=== PATIENT | male | born 1960 | race Caucasian/White ===

== ENCOUNTER → 2016-12-31 | Outpatient (CLI) | payer OTHER ==
--- NOTE | 2016-12-31 15:58 | MRI ---
MRI left knee without contrast Indication: Twisting injury of the left knee Comparison: None Technique: Multiplanar multisequence MR images of the left knee were obtained without contrast. Findings: There is marked abnormal increased signal and irregularity of the distal quadriceps tendon , with significant fiber disruption although some of the deep tendon fibers appear to remain intact. There is also irregularity and edema of the distal VMO fibers, suggesting partial tear. The medial and lateral patellofemoral retinacula are grossly intact. No acute fracture subluxation is identified. There is mild chondrosis of the medial femorotibial com partment, although no full-thickness chondral defect is identified. There is a small amount of fluid within the joint space, without lipohemarthrosis. There is mucoid degeneration of the otherwise int act ACL. An ovoid 4 mm fluid intensity focus within the ACL mid-substance is suggestive for a gangli on. The PCL, MCL, major lateral stabilizers, and quadriceps tendon are grossly intact. There is some edema adjacent to the MCL, which is likely reactive, but low-grade MCL sprain cannot be excluded. N o meniscal tear identified. Impression: 1. Intermediate to high-grade tear of the distal quadriceps tendon. Partial VMO tear. 2. Low grade MCL sprain cannot be excluded. 3. Mild medial compartment chondrosis, mucoid ACL. Reported By:
== END | disposition home or self-care (01) ==
LOC: RAD 14:32
PROVIDERS: ATTEND Anesthesiology
DX: M25.362 Other instability, left knee (principal); M23.8X2 Other internal derangements of left knee; S76.112A Strain of left quadriceps muscle, fascia and tendon, initial encounter; X58.XXXA Exposure to other specified factors, initial encounter
CPT/HCPCS: 73721

== ENCOUNTER 2020-07-14 13:10 | Inpatient (IN) ==
[2020-07-14 13:26] VITALS: BMI 26.4
--- NOTE | 2020-07-14 14:33 | DR.SOBA ---
HPI - Time Seen Time seen: 14:28 - Primary Care Physician Primary Care Physician: MIGEL RUTHERFORD - Complaints Chief Complaint Doctors Comments: Patient states he tested positive for COVID four days ago with cough, SOB, night sweats getting progressively worst with severe coughing worst at night. States he has gone to the emergency room two times in [place] and went last night with BP 96/60 and they sent him back home. States he has not eaten in three days due to the coughing. He is not sure about his taste or smell. He denies tobacco use but drinks beer at times. He denies drug usage. States he is coming from [place] on his way to [place] and has not made it there yet. States his oxygen has been running 92 to 95 at home and he has no oxygen. States he just want to be admitted and sent to a room. He denies diarrhea, hematuria or dysuria. Chief Complaint:: SOB, COUCHING, AND SWEATING. (COVID POSITIVE) - COVID-19 Coronavirus risk:travel/contact w/high risk person: No Has patient experienced Coronavirus symptoms: Yes Coronavirus symptoms experienced: Fever, Coughing, Shortness of Breath - Reviewed Nurses Notes Reviewed: Yes - Source History Provided: Patient - Mode of Arrival Mode of Arrival: Ambulatory - Timing Onset of Chief Complaint: 07/10/20 - Duration Duration: Days (5) - Context Onset:: At Rest PE Risk Factors:: None History of:: None Currently on:: Neither Prehospital Care:: None - Modifying Factors Worsens:: Exertion Improves:: Nothing - Associated Signs and Symptoms Associated Signs and Symptoms: Fever, Cough, Chest Pain (when cough) - If Cough Cough: Nonproductive PMH - PMH Past Medical History: No Past Surgical History: Yes Surgical History: Tonsillectomy, Other Past Surgical History Comment: HERNIA - Family History History of Family Medical Conditions: No - Social History Does patient currently use any type of tobacco product: No Does any household member use tobacco: No Alcohol Use: Occasionally Do you use any recreational Drugs:: No Lives With: Significant Other Lives Where: Home - Travel Risk Coronavirus risk:travel/contact w/high risk person: No Has patient experienced Coronavirus symptoms: Yes Coronavirus symptoms experienced: Fever, Coughing, Shortness of Breath - infectious screening In the last 2 months have you had wt loss of >10#?: NO Have you had fever, night sweats or hemotysis?: Yes Have you traveled outside the country in the last 6 months?: No Isolation: Droplet PE - General Limitations: No Limitations General Appearance: Alert, In Distress (moderate) - Head Head Exam: Normal Inspection, Atraumatic, Normocephalic - Eyes Eye exam: Normal Appearance, PERRL, EOMI. negative: Scleral Icterus, Conjunctival Injection, Nystagmus, Miosis, Mydrasis, Periorbital Swelling, Periorbital Tenderness, Other - ENT ENT Exam: Normal Exam, Normal Oropharynx, Normal External Ear Exam, Mucous Membranes Moist, TM's Normal Bilaterally - Neck Neck Exam: Normal Inspection, Full ROM, Trachea Midline. negative: Tenderness, Meningismus, Lymphadenopathy, Thyromegaly, Other - Chest Chest Inspection: Normal Inspection, Symmetric Chest Wall Rise. negative: Ten derness, Rash, Abscess, Other - Respiratory Respiratory Exam: Normal Lung Sounds Bilat Respiratory Exam: Bilateral Wheezing, Bilateral Decreased Breath Sounds, Right Rales, Lower Rales - Cardiovascular Cardiovascular Exam: Regular Rate, Normal Rhythm, Normal Heart Sounds - Abdominal Exam Abdominal Exam: Normal Inspection, Normal Bowel Sounds, Soft. negative: Distention, Tenderness, Guarding, Rebound, Rigidity, Dimnished Bowel Sounds, Hyperactive Bowel Sounds, Hypoactive Bowel Sounds, Organomegaly, Trauma, Incision, Ascites, Mass, Bruit, Pulsatile Mass, Hernia, Other Abdominal Tenderness: negative: RUQ, RLQ, LUQ, LLQ, Epigastrium, Suprapubic, Diffuse, Mild, Moderate, Severe, Other - Extremities Extremities Exam: Normal Inspection, Full ROM, Normal Capillary Refill. negative: Tenderness, Edema, Joint Swelling, Calf Tenderness, Other - Back Back Exam: Normal Inspection, Full ROM. negative: Tenderness, (R) CVA Tenderness, (L) CVA Tenderness, Muscle Spasm, Paraspinal Tenderness, Vertebral Tenderness, Rashes, (R) Sciatic Notch Tenderness, (L) Sciatic Notch Tendern, (R) Straight Leg Raise, (L) Straight Leg Raise, Other - Neurologic Neurological Exam: Alert, Oriented X3, CN II-XII Intact, Normal Gait, Reflexes Normal - Psychiatric Psychiatric Exam: Normal Affect, Normal Mood. negative: Depressed, Agitated, Anxious, Flat Affect, Manic, Homicidal Ideation, Suicidal Ideation, Other - Skin Skin Exam: Warm, Dry, Intact, Normal Color. negative: Rash, Cyanosis, Diaphoresis, Erythema, Pallor, Mottled, Other - Vital Signs Vitals: Temperature 100.4 F Pulse Rate 80 Respiratory Rate 20 Blood Pressure 112/56 O2 Sat by Pulse Oximetry 98 Course - Reevaluation 1st: Improved - Consultation Called: 17:06 Call Returned: 17:06 (Dr. Miller to admit. Give Solumedrol 80mg q8 and r emdesovir. NO plasma.) - Education/Counseling Education/Counseling: Patient, Family Educated On: Treatment, Diagnosis, Needs for Follow Up ROR - Labs Reviewed Laboratory Results Reviewed?: Yes (All labs and x-ray results reviewed and discussed with patient) Result Diagrams: 07/14/20 14:53 07/14/20 14:53 - XRAY XRAY Interpreted by: Radiologist (CXR: Left greater than right airspace disease. Multifoca atypical pneumonia from COVID-19 infection.) - EKG Rate: 71 Plover: Normal Rhythm: NSR Hypertrophy: LAE ST: Nonsp - Labs Reviewed Laboratory: WBC 5.2 X10^3/uL (3.6-10.0) 07/14/20 14:53 RBC 4.66 X10^6/uL (4.7-6.0) L 07/14/20 14:53 Hgb 15.1 g/dL (13.5-18.0) 07/14/20 14:53 Hct 43.9 % (42.0-54.0) 07/14/20 14:53 MCV 94.2 fL (80.0-100.0) 07/14/20 14:53 MCH 32.4 pg (27.0-34.0) 07/14/20 14:53 MCHC 34.4 g/dL (33.0-35.0) 07/14/20 14:53 RDW 13.3 % (11.6-16.5) 07/14/20 14:53 Plt Count 165 X10^3/uL (150.0-450.0) 07/14/20 14:53 MPV 9.2 fL (7.4-11.0) 07/14/20 14:53 Neut % (Auto) 81.3 % (42.0-75.0) H 07/14/20 14:53 Lymph % (Auto) 11.3 % (21.0-51.0) L 07/14/20 14:53 [place] % (Auto) 7.2 % (0.0-13.0) 07/14/20 14:53 Eos % (Auto) 0.0 % (0.9-2.9) L 07/14/20 14:53 Baso % (Auto) 0.2 % (0.2-1.0) 07/14/20 14:53 Neut # (Auto) 4.2 x10^3/uL (2.2-4.8) 07/14/20 14:53 Lymph # (Auto) 0.6 X10^3/uL (1.3-2.9) L 07/14/20 14:53 [place] # (Auto) 0.4 x10^3/uL (0.3-0.8) 07/14/20 14:53 Eos # (Auto) 0.0 x10^3/uL (0.0-0.2) 07/14/20 14:53 Baso # (Auto) 0.0 X10^3/uL (0.0-0.1) 07/14/20 14:53 Absolute Nucleated RBC 0.1 /100WBC 07/14/20 14:53 PT 13.4 SECONDS (11.8-14.3) 07/14/20 14:53 INR Target Range - 07/14/20 14:53 INR 1.05 (0.8-1.3) 07/14/20 14:53 APTT 28.1 SECONDS (22.9-36.5) 07/14/20 14:53 PTT Comment - 07/14/20 14:53 Sample Site Lr 07/14/20 14:58 ABG pH 7.510 (7.35-7.45) H 07/14/20 14:58 ABG pCO2 31.0 mmHg (35.0-45.0) L 07/14/20 14:58 ABG pO2 63.0 mmHg (80.0-100.0) L 07/14/20 14:58 ABG HCO3 24.7 mmol/L (22-26) 07/14/20 14:58 ABG O2 Saturation 94.0 % (90-100) 07/14/20 14:58 ABG Base Excess 2.2 mmol/L (-2.0-2.0) H 07/14/20 14:58 Deejay Test Pos 07/14/20 14:58 A-a Gradient 48.0 mmHg 07/14/20 14:58 FiO2 21.0 07/14/20 14:58 Blood Gas Comments Pt altagracia well. cdn 07/14/20 14:58 Sodium 136 mmol/L (136-145) 07/14/20 14:53 Corrected Sodium TNP 07/14/20 14:53 Potassium 4.0 mmol/L (3.5-5.1) 07/14/20 14:53 Chloride 100 mmol/L (98-107) 07/14/20 14:53 Carbon Dioxide 26.4 mmol/L (21-32) 07/14/20 14:53 BUN 22 mg/dL (7-18) H 07/14/20 14:53 Creatinine 1.14 mg/dL (0.70-1.30) 07/14/20 14:53 Est GFR (MDRD) Af Amer > 60 (>60) 07/14/20 14:53 Est GFR (MDRD) Non-Af > 60 (>60) 07/14/20 14:53 Glucose 95 mg/dL (65-99) 07/14/20 14:53 Calcium 8.7 mg/dL (8.5-10.1) 07/14/20 14:53 Corrected Calcium 9.7 mg/dL (8.5-10.1) 07/14/20 14:53 Magnesium 1.8 mg/dL (1.7-2.9) 07/14/20 14:53 Ferritin 1402 ng/mL (26-388) H 07/14/20 14:53 Total Bilirubin 0.50 mg/dL (0.2-1.0) 07/14/20 14:53 AST 39 Units/L (15-37) H 07/14/20 14:53 ALT 34 Units/L (12-78) 07/14/20 14:53 Alkaline Phosphatase 48 Units/L (46-116) 07/14/20 14:53 Creatine Kinase 225 Units/L (39-308) 07/14/20 14:53 CK-MB (CK-2) < 1.0 ng/mL (0-4.0) 07/14/20 14:53 CK/CKMB % Calc 0.4 % (<4) 07/14/20 14:53 Troponin I < 0.02 ng/mL (0-1.5) 07/14/20 14:53 C-Reactive Protein 91.30 mg/L (0-3.0) H 07/14/20 14:53 Total Protein 7.0 g/dL (6.4-8.2) 07/14/20 14:53 Albumin 2.8 g/dL (3.4-5.0) L 07/14/20 14:53 Globulin 4.2 g/dL (2.5-4.5) 07/14/20 14:53 Albumin/Globulin Ratio 0.7 Ratio (1.1-2.1) L 07/14/20 14:53 Opioid - Opioid Risk Tool Age (Omid box if 16-45): No Total: 0 Total Score Risk Category: Low Risk - Diagnosis Discharge Problem: Pneumonia due to COVID-19 virus, Failure of outpatient treatment Bilateral pneumonia Qualifiers: Lung location: unspecified part of lung Dyspnea Qualifiers: Dyspnea type: dyspnea on exertion Qualified Code(s): R06.00 - Dyspnea, unspecified - Discharge Plan Disposition: ADMITTED INPATIENT Condition: Stable - Follow ups/Referrals Follow ups/Referrals: SHAINA RIVERO [Primary Care Provider] - 3 days - Instructions
[2020-07-14] MEDS ORDERED: VENTOLIN or PROAIR HFA IN ONE (14:46)
[2020-07-14] MEDS ORDERED: DUONEB 0.5 MG/3 MG (3 mL) NEB ONE ×3 (14:54→21:58)
[2020-07-14] MEDS ORDERED: NS 1000 ML 1,000 ML IV SCH ×2 (15:00→18:00)
[2020-07-14 15:04] LABS: BASOPHILS % (AUTO) 0.2 % (0.2-1.0); HEMATOCRIT 43.9 % (42.0-54.0); HEMOGLOBIN 15.1 g/dL (13.5-18.0); LYMPHOCYTES # (AUTO) 0.6 X10^3/uL (1.3-2.9); LYMPHOCYTES % (AUTO) 11.3 % (21.0-51.0); MEAN CORPUSCULAR HEMOGLOBIN 32.4 pg (27.0-34.0); MEAN CORPUSCULAR HGB CONC 34.4 g/dL (33.0-35.0); MEAN CORPUSCULAR VOLUME 94.2 fL (80.0-100.0); MEAN PLATELET VOLUME 9.2 fL (7.4-11.0); MONOCYTES # (AUTO) 0.4 x10^3/uL (0.3-0.8); MONOCYTES % (AUTO) 7.2 % (0.0-13.0); NEUTROPHILS # (AUTO) 4.2 x10^3/uL (2.2-4.8); NEUTROPHILS % (AUTO) 81.3 % (42.0-75.0); PLATELET COUNT 165 X10^3/uL (150.0-450.0); RED BLOOD COUNT 4.66 X10^6/uL (4.7-6.0); RED CELL DISTRIBUTION WIDTH 13.3 % (11.6-16.5); WHITE BLOOD COUNT 5.2 X10^3/uL (3.6-10.0)
[2020-07-14 15:06] LABS: ABG ALLEN TEST POS; ABG BASE EXCESS 2.2 mmol/L (-2.0-2.0); ABG HCO3 24.7 mmol/L (22-26)
[2020-07-14] MEDS ORDERED: NS 1000 ML 1,000 ML ONE (15:07)
--- NOTE | 2020-07-14 15:15 | RAD ---
CHEST, 1 VIEWHistory: SOB, COUCHING, AND SWEATING. (COVID POSITIVE)Comparison: NoneFindings: Cardiac silhouette is normal in size for AP technique. There are patchy peripheral opacities throughout the left lung and mid right lung. There is no significant pleural effusion. No pneumothorax.Impression: Left greater than right airspace disease as above, which given provided history is most compatible with multifocal atypical pneumonia from COVID-19 infection. Clinical correlation, continued PA/lateral radiographic follow-up and respiratory precautions recommended.Electronically signed by: VANESA LU (Jul 14, 2020 15:13:30)
[2020-07-14 15:18] LABS: BLOOD UREA NITROGEN 22 mg/dL (7-18); CALCIUM 8.7 mg/dL (8.5-10.1); CARBON DIOXIDE 26.4 mmol/L (21-32); CHLORIDE 100 mmol/L (98-107); CREATININE 1.14 mg/dL (0.70-1.30); SODIUM 136 mmol/L (136-145); TROPONIN I < 0.02 ng/mL (0-1.5); eGFR NON BLACK RACES > 60 (>60)
[2020-07-14 15:22] LABS: ALANINE AMINOTRANSFERASE 34 Units/L (12-78); ALBUMIN 2.8 g/dL (3.4-5.0); ALKALINE PHOSPHATASE 48 Units/L (46-116); ASPARTATE AMINO TRANSFERASE 39 Units/L (15-37); CKMB % 0.4 % (<4); COR CA(FOR HYPOALB) 9.7 mg/dL (8.5-10.1); CREATINE KINASE 225 Units/L (39-308); CREATINE KINASE MB < 1.0 ng/mL (0-4.0); MAGNESIUM 1.8 mg/dL (1.7-2.9)
[2020-07-14] MEDS ORDERED: ROCEPHIN VIAL 1 GRAM 1 G in NS 100 ML IV + SPIKE MINIBAG* 100 ML IV ONE (16:50)
[2020-07-14] MEDS ORDERED: VITAMIN D (1.25MG) PO SCH (17:15)
[2020-07-14] MEDS ORDERED: D5 1/2 NS 1000 ML 1,000 ML IV ONE (17:55)
[2020-07-14] MEDS ORDERED: ROCEPHIN 1 GRAM IV PREMIX 1 G/50 ML IV.SOLN. IV ONE (17:56)
[2020-07-14] MEDS ORDERED: REMDESIVIR 200 MG in NS 250 ML IV 250 ML IV SCH (18:00)
[2020-07-14] MEDS: D5 1/2 NS 1000 ML 1,000 ML IV SCH (18:05)
[2020-07-14] MEDS ORDERED: ROBITUSSIN DM ONE (19:43)
[2020-07-14] MEDS: ROBITUSSIN DM PO PRN (20:33)
[2020-07-14] MEDS: ASCORBIC ACID INJ MULTI-DOSE VIAL 1,500 MG in NS 100 ML IV 100 ML IV SCH (21:24)
[2020-07-14] MEDS: SOLU-Medrol 125 MG VIAL IVP SCH ×3 (21:24→22:04)
[2020-07-14] MEDS: ZINC SULFATE PO SCH (21:25)
[2020-07-14] MEDS: LOVENOX INJ 30 MG SYR SC SCH (21:25)
[2020-07-14] MEDS: PULMICORT NEB TX 0.5 MG NEB SCH (21:58)
[2020-07-14] MEDS ORDERED: PULMICORT NEB TX 0.5 MG NEB ONE (21:58)
[2020-07-14] MEDS: DUONEB 0.5 MG/3 MG (3 mL) NEB SCH (21:58)
[2020-07-15] MEDS: ASCORBIC ACID INJ MULTI-DOSE VIAL 1,500 MG in NS 100 ML IV 100 ML IV SCH (03:00)
[2020-07-15 05:20] LABS: BASOPHILS % (AUTO) 0.4 % (0.2-1.0); HEMATOCRIT 41.1 % (42.0-54.0); HEMOGLOBIN 13.9 g/dL (13.5-18.0); LYMPHOCYTES # (AUTO) 0.5 X10^3/uL (1.3-2.9); LYMPHOCYTES % (AUTO) 9.3 % (21.0-51.0); MEAN CORPUSCULAR HEMOGLOBIN 31.9 pg (27.0-34.0); MEAN CORPUSCULAR HGB CONC 33.9 g/dL (33.0-35.0); MEAN PLATELET VOLUME 9.7 fL (7.4-11.0); MONOCYTES # (AUTO) 0.4 x10^3/uL (0.3-0.8); MONOCYTES % (AUTO) 6.6 % (0.0-13.0); NEUTROPHILS # (AUTO) 4.9 x10^3/uL (2.2-4.8); NEUTROPHILS % (AUTO) 83.7 % (42.0-75.0); PLATELET COUNT 167 X10^3/uL (150.0-450.0); RED BLOOD COUNT 4.37 X10^6/uL (4.7-6.0); WHITE BLOOD COUNT 5.8 X10^3/uL (3.6-10.0)
[2020-07-15 05:40] LABS: ALANINE AMINOTRANSFERASE 26 Units/L (12-78); ALBUMIN 2.5 g/dL (3.4-5.0); ALKALINE PHOSPHATASE 43 Units/L (46-116); ASPARTATE AMINO TRANSFERASE 35 Units/L (15-37); BLOOD UREA NITROGEN 20 mg/dL (7-18); CALCIUM 7.7 mg/dL (8.5-10.1); CARBON DIOXIDE 26.6 mmol/L (21-32); CHLORIDE 101 mmol/L (98-107); COR CA(FOR HYPOALB) 8.9 mg/dL (8.5-10.1); COR NA(FOR HYPERGLY) 136 mmol/L (136-145); CREATININE 1.03 mg/dL (0.70-1.30); SODIUM 136 mmol/L (136-145); TOTAL PROTEIN 6.3 g/dL (6.4-8.2); TROPONIN I < 0.02 ng/mL (0-1.5); eGFR NON BLACK RACES > 60 (>60)
--- NOTE | 2020-07-15 06:01 | RAD ---
HISTORYSOB pneumoniaSTUDYPortable AP [id number] size is stable and is upper normal. Patchy-linear bilateral infiltrates are again noted with little significant change in extent or distribution. There is no complicating extrapulmonary air or pleural fluid.IMPRESSIONNo significant change in appearance of bilateral pneumonia.Electronically signed by: CHRISTINE BELL (Jul 15, 2020 05:59:35)
[2020-07-15] MEDS: SOLU-Medrol 125 MG VIAL IVP SCH ×2 (06:19→13:03)
[2020-07-15 07:09] LABS: ABG BASE EXCESS 2.3 mmol/L (-2.0-2.0)
[2020-07-15] MEDS ORDERED: ROBITUSSIN DM ONE (08:45)
[2020-07-15] MEDS ORDERED: K-DUR TAB 20 MEQ PO ONE (08:46)
[2020-07-15] MEDS: D5 1/2 NS 1000 ML 1,000 ML IV SCH ×3 (08:47→21:30)
[2020-07-15] MEDS: LOVENOX INJ 30 MG SYR SC SCH (08:48)
[2020-07-15] MEDS ORDERED: K-RIDER 10 MEQ/NS 100 ML 10 MEQ/100 ML BAG IV PRN (08:49)
[2020-07-15] MEDS: ZINC SULFATE PO SCH ×2 (08:49→21:30)
[2020-07-15] MEDS ORDERED: KLOR-CON PO PRN (08:49)
[2020-07-15] MEDS ORDERED: POTASSIUM CHL 40 MEQ/NS 0.45% 500 ML IV PRN (08:49)
[2020-07-15] MEDS: TRICOR TAB 160 MG PO SCH (08:49)
[2020-07-15] MEDS ORDERED: POTASSIUM CHLORIDE LIQ 20 MEQ UDC PO PRN (08:49)
[2020-07-15] MEDS ORDERED: POTASSIUM CHL 60 MEQ/NS 0.45% 500 ML IV PRN (08:49)
[2020-07-15] MEDS: ROBITUSSIN DM PO PRN (08:49)
[2020-07-15] MEDS ORDERED: MICRO K EXTEN CAP 10 MEQ PO PRN (08:49)
[2020-07-15] MEDS: LEVAQUIN PREMIX IV 500 MG 500 MG/100 ML BAG IV SCH (08:51)
[2020-07-15] MEDS: K-DUR TAB 20 MEQ PO PRN (08:52)
[2020-07-15] MEDS ORDERED: VITAMIN A PO SCH (09:00)
--- NOTE | 2020-07-15 09:08 | DR.H&P ---
H&P - History & Physical for Day of: H&P Date: 07/14/20 - Chief Complaint Chief Complaint: COUGH, SOB, DIAPHORESIS, WEAKNESS, LOW BLOOD PRESSURE, LOSS OF TASTE AND SMELL, COVID-19 POSITIVE - History of Present Illness History of Present Illness: IS A 60 YEAR OLD WHITE MALE. HE PRESENTED TO THE ER WITH REPORTS OF PERSISTENT COUGH, SHORTNESS OF BREATH, DIAPHORESIS, WEAKNESS, LOW BLOOD PRESSURE, AND LOSS OF TASTE AND SMELL. COUGH IS NON- PRODUCTIVE. HE REPORTS TESTING POSITIVE FOR COVID-19 FOUR DAYS PRIOR. HE HAS BEEN TAKING DOXYCYCLINE 100MG PO BID AND A MEDROL DOSEPACK SINCE 07/09/20. HE DENIES IMPROVEMENT IN SYMPTOMS DESPITE COMPLIANCE WITH MEDICATIONS. HE REPORTS THAT HIS OXYGEN SATURATIONS HAVE BEEN 92% - 95% ON ROOM AIR. HE DOES NOT HAVE OXYGEN AT HOME. HIS PMH INCLUDES: HYPERLIPIDEMIA, TONSILLECTOMY, AND HERNIA REPAIR X 3. ON ARRIVAL TO THE ER, VITALS WERE 97.9-73-20-97%-103/56. LABS WERE OBTAINED. ABNORMAL LAB VALUES INCLUDE THE FOLLOWING: RBC 4.66, BUN 22, AST 39, ALBUMIN 2.8, FERRITIN 1402, CRP 91.30. CARDIAC ENZYMES WERE WITHIN NORMAL LIMITS. COVID-19 POSITIVE. BLOOD CULTURES WERE SET UP. A CHEST XRAY WAS OBTAINED AND REVEALED: Left greater than right airspace disease as above, which given provided history is most compatible with multifocal atypical pneumonia from COVID-19 infection. Clinical correlation, continued PA/lateral radiographic follow-up and respiratory precautions recommended. EKG REVEALED: SINUS RHYTHM WITH HR 71. HE WAS ADMITTED TO THE HOSPITAL FOR FURTHER EVALUATION AND TREATMENT OF PNEUMONIA DUE TO COVID-19. HE WAS STARTED ON D51/2NS AT 90 ML/HR, LEVAQUIN 500MG IV DAILY, REMDESIVIR 200MG IV X 1, THEN REMDESIVIR 100MG IV DAILY, DUONEBS QID, PULMICORT NEBS BID, LOVENOX 30MG SC BID, TRICOR 160MG PO DAILY, ROBITUSSIN DM 10ML PO Q4H PRN, SOLU-MEDROL 80MG IV Q8H, ZINC SULFATE 220MG PO BID, AND THE POTASSIUM AND MAGNESIUM PROTOCOLS. OTHERWISE, WE WILL FOLLOW UP WITH AM LABS, CHEST XRAY, ABG, AND CONTINUE TO MONITOR. TIME SPENT ON CLINICAL ASSESSMENT, REVIEWING LABS AND IMAGING, DECISION MAKING, AND DOCUMENTATION WAS GREATER THAN 74 MINUTES. - Past Medical History Past Medical History: Dyslipidemia - Past Surgical History Surgical History: Tonsillectomy, Other Additional Surgical History: HERNIA REPAIR X 3 - Family History Family Medical History: Cancer - Social History Does patient currently use any type of tobacco product: No Have you used tobacco products in the last 12 months: No Type of Tobacco Use: None Does any household member use tobacco: No Alcohol Use: DAILY Drug Use: None - Medications Home Medications: No Known Drug Allergies Allergy (Verified 07/14/20 14:29) - Review of Systems Constitutional: Fever, Weakness, Malaise Eyes: No Symptoms Reported ENT: No Symptoms Reported Respiratory: See HPI, Cough, Shortness of Breath, Wheezing Cardiovascular: No Symptoms Reported Gastrointestinal: No Symptoms Reported Genitourinary: No Symptoms Reported Musculoskeletal: No Symptoms Reported Skin: No Symptoms Reported Neurological: Weakness - Physical Exam Vital Signs: Temperature 97.9 F Pulse Rate 72 Respiratory Rate 23 Blood Pressure 101/52 O2 Sat by Pulse Oximetry 100 Oriented: Normal Eyes: Normal Ear: Normal Nose: Normal Throat: Normal Respiratory: Wheezes Throughout Cardiovascular: Normal : Normal Auscultation: Bowel Sounds: Normal Palpation: Normal Tenderness: Normal Skin: Normal Musculoskeletal: Normal Psychiatric: Normal Mood Description: Calm Affect: Normal Speech Pattern: Clear - Assessment/Plan (1) Pneumonia due to COVID-19 virus Status: Acute Plan: ADMIT, D51/2NS AT 90 ML/HR, LEVAQUIN 500MG IV DAILY, REMDESIVIR 200MG IV X 1, THEN REMDESIVIR 100MG IV DAILY, DUONEBS QID, PULMICORT NEBS BID, LOVENOX 30MG SC BID, TRICOR 160MG PO DAILY, ROBITUSSIN DM 10ML PO Q4H PRN, SOLU-MEDROL 80MG IV Q8H, ZINC SULFATE 220MG PO BID, AND THE POTASSIUM AND MAGNESIUM PROTOCOLS. (2) Dyspnea Qualifiers: Dyspnea type: dyspnea on exertion Qualified Code(s): R06.00 - Dyspnea, unspecified Status: Acute - Allergies Allergies/Adverse Reactions: Allergies Allergy/AdvReac Type Severity Reaction Status Date / Time No Known Drug Allergies Allergy Verified 07/14/20 14:29
[2020-07-15] MEDS: DUONEB 0.5 MG/3 MG (3 mL) NEB SCH ×4 (10:39→20:25)
[2020-07-15] MEDS ORDERED: LOVENOX INJ 100 MG SYR SC ONE ×2 (11:20→11:24)
--- NOTE | 2020-07-15 12:36 | CT ---
HISTORYCovid, Rule Out PESTUDYCTA CHESTCOMPARISONNoneTECHNIQUECT of the chest was obtained with IV contrast. Reformatted images in the coronal sagittal planes and 3D MIP imaged also generated for review.FINDINGSInitia contrast bolus timing is adequate for detection of PTE. However, respiratory motion artifact limits evaluation, particularly of the bilateral lung bases accounting for this, no central or large segmental pulmonary arterial filling defects are identified. There is no pulmonary arterial dilatation or evidence of right heart strain. The heart is mildly enlarged without significant pericardial effusion. Mild coronary atherosclerotic disease noted. Thoracic aorta and proximal great vessels are normal in contour and caliber. Central airways are patent. There are shotty mediastinal lymph nodes, none pathologically enlarged and likely reactive. No bulky hilar lymphadenopathy seen.Evaluation of the lungs demonstrate patchy, predominantly peripheral ground-glass opacities throughout all lobes bilaterally. A background of mild upper lobe predominant paraseptal emphysema noted. There is no pleural effusion or pneumothorax.Limited images through the upper abdomen demonstrate no acute abnormality. No aggressive osseous lesions.IMPRESSION1. Motion limited exam without evidence for central or large segmental PTE.2. Bilateral airspace disease as above, most compatible with multifocal pneumonia. Atypical pneumonia, to include viral etiologies not excluded. Clinical correlation, continued PA/lateral radiographic rather than CT follow-up and respiratory precautions recommended.3. Emphysema, mild cardiomegaly and additional chronic findings as above.Electronically signed by: VANESA LU (Jul 15, 2020 12:34:51)
[2020-07-15] MEDS: REMDESIVIR 100 MG in NS 250 ML IV 250 ML IV SCH (17:43)
[2020-07-15] MEDS: TYLENOL 325 MG TAB PO PRN (18:14)
[2020-07-15] MEDS ORDERED: TYLENOL 325 MG TAB PO ONE (18:14)
[2020-07-15] MEDS: PULMICORT NEB TX 0.5 MG NEB SCH (20:43)
[2020-07-15] MEDS: LOVENOX INJ 80 MG SYR SC SCH (21:30)
[2020-07-16 05:26] LABS: BASOPHILS % (AUTO) 0.6 % (0.2-1.0); EOSINOPHILS % (AUTO) 0.1 % (0.9-2.9); HEMATOCRIT 40.8 % (42.0-54.0); HEMOGLOBIN 14.3 g/dL (13.5-18.0); LYMPHOCYTES # (AUTO) 0.7 X10^3/uL (1.3-2.9); LYMPHOCYTES % (AUTO) 17.6 % (21.0-51.0); MEAN CORPUSCULAR HEMOGLOBIN 32.4 pg (27.0-34.0); MEAN CORPUSCULAR VOLUME 92.6 fL (80.0-100.0); MEAN PLATELET VOLUME 9.5 fL (7.4-11.0); MONOCYTES # (AUTO) 0.4 x10^3/uL (0.3-0.8); NEUTROPHILS # (AUTO) 2.8 x10^3/uL (2.2-4.8); NEUTROPHILS % (AUTO) 70.7 % (42.0-75.0); PLATELET COUNT 192 X10^3/uL (150.0-450.0); RED BLOOD COUNT 4.41 X10^6/uL (4.7-6.0); RED CELL DISTRIBUTION WIDTH 13.2 % (11.6-16.5); WHITE BLOOD COUNT 3.9 X10^3/uL (3.6-10.0)
[2020-07-16 05:48] LABS: ALANINE AMINOTRANSFERASE 27 Units/L (12-78); ALBUMIN 2.3 g/dL (3.4-5.0); ALKALINE PHOSPHATASE 39 Units/L (46-116); ASPARTATE AMINO TRANSFERASE 36 Units/L (15-37); BLOOD UREA NITROGEN 17 mg/dL (7-18); CALCIUM 7.8 mg/dL (8.5-10.1); CARBON DIOXIDE 25.8 mmol/L (21-32); CHLORIDE 102 mmol/L (98-107); COR CA(FOR HYPOALB) 9.2 mg/dL (8.5-10.1); CREATININE 0.85 mg/dL (0.70-1.30); SODIUM 137 mmol/L (136-145); eGFR NON BLACK RACES > 60 (>60)
--- NOTE | 2020-07-16 06:14 | RAD ---
HISTORYFollow-up COVID-19STUDYChest AP [id number]/2020 plain film and CTA chestFINDINGSHypo inflation accentuates the heart size. It is likely still enlarged. No congestive heart failure is noted. Bilateral interstitial and ground-glass infiltrates are present left greater than right. Many of the infiltrates visible on the recent CTA are not yet demonstrated on plain film. No pleural effusions are identified. Bony thorax is unremarkable.IMPRESSIONNo change hypo inflationNo change bilateral lung infiltrates as described left greater than rightElectronically signed by: DAVIN STOKES (Jul 16, 2020 06:12:03)
[2020-07-16] MEDS: SOLU-Medrol 125 MG VIAL IVP SCH ×4 (06:17→21:00)
[2020-07-16] MEDS: ZINC SULFATE PO SCH ×2 (08:31→20:36)
[2020-07-16] MEDS: TRICOR TAB 160 MG PO SCH (08:31)
[2020-07-16] MEDS: LOVENOX INJ 80 MG SYR SC SCH ×2 (08:31→20:36)
[2020-07-16] MEDS: LEVAQUIN PREMIX IV 500 MG 500 MG/100 ML BAG IV SCH (08:31)
[2020-07-16] MEDS: D5 1/2 NS 1000 ML 1,000 ML IV SCH ×2 (08:46→10:00)
[2020-07-16] MEDS: TYLENOL 325 MG TAB PO PRN ×2 (08:46→17:55)
[2020-07-16] MEDS ORDERED: VITAMIN A PO SCH (09:00)
[2020-07-16] MEDS ORDERED: VITAMIN D3 125 mcg (5,000 UNITS) PO SCH (09:00)
[2020-07-16] MEDS: DUONEB 0.5 MG/3 MG (3 mL) NEB SCH ×4 (10:57→21:20)
[2020-07-16] MEDS: REMDESIVIR 100 MG in NS 250 ML IV 250 ML IV SCH (17:41)
[2020-07-16] MEDS ORDERED: RESTORIL CAP 15 MG PO PRN (19:39)
--- NOTE | 2020-07-16 21:25 | PCM.PROG ---
Progress Note - Progress Note for Day of Date of Exam: 07/15/20 - Subjective Subjective: WAS ADMITTED FOR TREATMENT OF PNEUMONIA DUE TO COVID-19. TODAY, HE IS ALERT AND ORIENTED, LYING IN BED ON MORNING ROUNDS. HE CONTINUES WITH COMPLAINTS OF COUGH AND SHORTNESS OF BREATH THIS MORNING. HE REPORTS INCREASED SHORTNESS OF BREATH THIS MORNING. ON EXAMINATION, HEART IS REGULAR IN RATE AND RHYTHM. BILATERAL LUNGS ARE NOTED WITH SCATTERED WHEEZING THROUGHOUT. ABDOMEN IS ROUND, SOFT, AND NON-TENDER WITH NORMAL BOWEL SOUNDS IN ALL QUADRANTS. HIS VITALS THIS MORNING ARE: 99.4-72-23-99%-97/54. LABS WERE OBTAINED. ABNORMAL LAB VALUES INCLUDE THE FOLLOWING: RBC 4.37, HCT 41.1, D-DIMER 0.77, POTASSIUM 3.4, BUN 20, GLUCOSE 111, CALCIUM 7.7, FERRITIN 1741, ALK PHOS 43, CRP 102.80, TOTAL PROTEIN 6.3, ALBUMIN 2.5. A CHEST XRAY WAS OBTAINED AND REVEALED: No significant change in appearance of bilateral pneumonia. HE IS CURRENTLY RECEIVING: D51/2NS AT 90 ML/HR, LEVAQUIN 500MG IV DAILY, REMDESIVIR 100MG IV DAILY, DUONEBS QID, PULMICORT NEBS BID, LOVENOX 30MG SC BID, TRICOR 16 0MG PO DAILY, ROBITUSSIN DM 10ML PO Q4H PRN, SOLU-MEDROL 80MG IV Q8H, ZINC SULFATE 220MG PO BID, AND THE POTASSIUM AND MAGNESIUM PROTOCOLS. WE WILL CONTINUE WITH CURRENT PLAN OF CARE TODAY AND OBTAIN A CHEST CTA TO RULE OUT A PE. OTHERWISE, WE WILL FOLLOW UP WITH AM LABS AND CONTINUE TO MONITOR. - Past Medical Family Social History Past Med/Fam/Surg Hx: No changes since H&P Allergies: Allergies No Known Drug Allergies Allergy (Verified 07/14/20 14:29) - Review of Systems ROS: No change since H&P - Vital Signs and I&O's Vital Signs: Temperature 98.4 F Pulse Rate 73 Respiratory Rate 22 Blood Pressure 117/56 O2 Sat by Pulse Oximetry 94 Intake and Output: Intake & Output 07/14/20 07/15/20 07/16/20 07/17/20 11:59 11:59 11:59 11:59 Intake Total 1344 / 1344 3141 / 3141 1254 / 1254 Output Total 1000 / 1000 350 / 350 Balance 1344 / 1344 2141 / 2141 904 / 904 - Physical Exam Oriented: Normal Eyes: Normal Ear: Normal Nose: Normal Throat: Normal Respiratory: Generalized, Wheezes Cardiovascular: Normal : Normal Auscultation: Bowel Sounds: Normal Palpation: Normal Tenderness: Normal Skin: Normal Musculoskeletal: Normal Psychiatric: Normal Mood Description: Calm Affect: Normal Speech Pattern: Clear, Appropriate - Laboratory and Diagnostics Result Diagrams: 07/16/20 04:46 07/16/20 09:00 Labs: 07/14/20 17:07 Blood Blood Culture - Preliminary 07/14/20 17:03 Blood Blood Culture - Preliminary Laboratory WBC 3.9 X10^3/uL (3.6-10.0) 07/16/20 04:46 RBC 4.41 X10^6/uL (4.7-6.0) L 07/16/20 04:46 Hgb 14.3 g/dL (13.5-18.0) 07/16/20 04:46 Hct 40.8 % (42.0-54.0) L 07/16/20 04:46 MCV 92.6 fL (80.0-100.0) 07/16/20 04:46 MCH 32.4 pg (27.0-34.0) 07/16/20 04:46 MCHC 35.0 g/dL (33.0-35.0) 07/16/20 04:46 RDW 13.2 % (11.6-16.5) 07/16/20 04:46 Plt Count 192 X10^3/uL (150.0-450.0) 07/16/20 04:46 MPV 9.5 fL (7.4-11.0) 07/16/20 04:46 Neut % (Auto) 70.7 % (42.0-75.0) 07/16/20 04:46 Lymph % (Auto) 17.6 % (21.0-51.0) L 07/16/20 04:46 [place] % (Auto) 11.0 % (0.0-13.0) 07/16/20 04:46 Eos % (Auto) 0.1 % (0.9-2.9) L 07/16/20 04:46 Baso % (Auto) 0.6 % (0.2-1.0) 07/16/20 04:46 Neut # (Auto) 2.8 x10^3/uL (2.2-4.8) 07/16/20 04:46 Lymph # (Auto) 0.7 X10^3/uL (1.3-2.9) L 07/16/20 04:46 [place] # (Auto) 0.4 x10^3/uL (0.3-0.8) 07/16/20 04:46 Eos # (Auto) 0.0 x10^3/uL (0.0-0.2) 07/16/20 04:46 Baso # (Auto) 0.0 X10^3/uL (0.0-0.1) 07/16/20 04:46 Absolute Nucleated RBC 0.1 /100WBC 07/16/20 04:46 PT 13.4 SECONDS (11.8-14.3) 07/14/20 14:53 INR Target Range - 07/14/20 14:53 INR 1.05 (0.8-1.3) 07/14/20 14:53 APTT 28.1 SECONDS (22.9-36.5) 07/14/20 14:53 PTT Comment - 07/14/20 14:53 D-Dimer 0.77 ug/ml (0.0-0.57) H* 07/15/20 04:53 Sample Site Lb 07/15/20 07:00 ABG pH 7.500 (7.35-7.45) H 07/15/20 07:00 ABG pCO2 32.0 mmHg (35.0-45.0) L 07/15/20 07:00 ABG pO2 59.0 mmHg (80.0-100.0) L 07/15/20 07:00 ABG HCO3 25.0 mmol/L (22-26) 07/15/20 07:00 ABG O2 Saturation 93.0 % (90-100) 07/15/20 07:00 ABG Base Excess 2.3 mmol/L (-2.0-2.0) H 07/15/20 07:00 Deejay Test Na 07/15/20 07:00 A-a Gradient 51.0 mmHg 07/15/20 07:00 FiO2 21.0 07/15/20 07:00 Blood Gas Comments Pt [facility] 07/15/20 07:00 Sodium 137 mmol/L (136-145) 07/16/20 04:46 Corrected Sodium TNP 07/16/20 04:46 Potassium 4.1 mmol/L (3.5-5.1) 07/16/20 09:00 Chloride 102 mmol/L (98-107) 07/16/20 04:46 Carbon Dioxide 25.8 mmol/L (21-32) 07/16/20 04:46 BUN 17 mg/dL (7-18) 07/16/20 04:46 Creatinine 0.85 mg/dL (0.70-1.30) 07/16/20 04:46 Est GFR (MDRD) Af Amer > 60 (>60) 07/16/20 04:46 Est GFR (MDRD) Non-Af > 60 (>60) 07/16/20 04:46 Glucose 99 mg/dL (65-99) 07/16/20 04:46 Calcium 7.8 mg/dL (8.5-10.1) L 07/16/20 04:46 Corrected Calcium 9.2 mg/dL (8.5-10.1) 07/16/20 04:46 Magnesium 2.0 mg/dL (1.7-2.9) 07/16/20 04:46 Ferritin 1764 ng/mL (26-388) H 07/16/20 04:46 Total Bilirubin 0.30 mg/dL (0.2-1.0) 07/16/20 04:46 AST 36 Units/L (15-37) 07/16/20 04:46 ALT 27 Units/L (12-78) 07/16/20 04:46 Alkaline Phosphatase 39 Units/L (46-116) L 07/16/20 04:46 Creatine Kinase 225 Units/L (39-308) 07/14/20 14:53 CK-MB (CK-2) < 1.0 ng/mL (0-4.0) 07/14/20 14:53 CK/CKMB % Calc 0.4 % (<4) 07/14/20 14:53 Troponin I < 0.02 ng/mL (0-1.5) 07/15/20 04:53 C-Reactive Protein 75.70 mg/L (0-3.0) H 07/16/20 04:46 B-Natriuretic Peptide 64.8 pg/mL (0-79) 07/15/20 04:53 Total Protein 6.0 g/dL (6.4-8.2) L 07/16/20 04:46 Albumin 2.3 g/dL (3.4-5.0) L 07/16/20 04:46 Globulin 3.7 g/dL (2.5-4.5) 07/16/20 04:46 Albumin/Globulin Ratio 0.6 Ratio (1.1-2.1) L 07/16/20 04:46 SARS-CoV-2 (PCR) Positive (NEGATIVE) A 07/14/20 16:52 - Plan (1) Pneumonia due to COVID-19 virus Status: Acute Plan: D51/2NS AT 90 ML/HR, LEVAQUIN 500MG IV DAILY, REMDESIVIR 100MG IV DAILY, DUONEBS QID, PULMICORT NEBS BID, LOVENOX 30MG SC BID, TRICOR 160MG PO DAILY, ROBITUSSIN DM 10ML PO Q4H PRN, SOLU-MEDROL 80MG IV Q8H, ZINC SULFATE 220MG PO BID, AND THE POTASSIUM AND MAGNESIUM PROTOCOLS. (2) Dyspnea Status: Acute Qualifiers: Dyspnea type: dyspnea on exertion Qualified Code(s): R06.00 - Dyspnea, unspecified
[2020-07-17] MEDS: D5 1/2 NS 1000 ML 1,000 ML IV SCH ×3 (00:47→14:10)
[2020-07-17] MEDS: SOLU-Medrol 125 MG VIAL IVP SCH ×3 (05:03→11:35)
[2020-07-17 05:55] LABS: BASOPHILS % (AUTO) 0.3 % (0.2-1.0); EOSINOPHILS % (AUTO) 0.2 % (0.9-2.9); HEMATOCRIT 41.2 % (42.0-54.0); HEMOGLOBIN 14.2 g/dL (13.5-18.0); LYMPHOCYTES # (AUTO) 0.5 X10^3/uL (1.3-2.9); LYMPHOCYTES % (AUTO) 10.3 % (21.0-51.0); MEAN CORPUSCULAR HEMOGLOBIN 32.2 pg (27.0-34.0); MEAN CORPUSCULAR HGB CONC 34.4 g/dL (33.0-35.0); MEAN CORPUSCULAR VOLUME 93.5 fL (80.0-100.0); MEAN PLATELET VOLUME 9.9 fL (7.4-11.0); MONOCYTES # (AUTO) 0.5 x10^3/uL (0.3-0.8); MONOCYTES % (AUTO) 10.4 % (0.0-13.0); NEUTROPHILS # (AUTO) 4.1 x10^3/uL (2.2-4.8); NEUTROPHILS % (AUTO) 78.8 % (42.0-75.0); PLATELET COUNT 218 X10^3/uL (150.0-450.0); RED BLOOD COUNT 4.41 X10^6/uL (4.7-6.0); WHITE BLOOD COUNT 5.3 X10^3/uL (3.6-10.0)
[2020-07-17 05:57] LABS: ALANINE AMINOTRANSFERASE 23 Units/L (12-78); ALBUMIN 2.2 g/dL (3.4-5.0); ALKALINE PHOSPHATASE 40 Units/L (46-116); ASPARTATE AMINO TRANSFERASE 29 Units/L (15-37); BLOOD UREA NITROGEN 12 mg/dL (7-18); CALCIUM 7.5 mg/dL (8.5-10.1); CARBON DIOXIDE 27.9 mmol/L (21-32); CHLORIDE 101 mmol/L (98-107); COR CA(FOR HYPOALB) 8.9 mg/dL (8.5-10.1); CREATININE 0.85 mg/dL (0.70-1.30); SODIUM 135 mmol/L (136-145); TOTAL PROTEIN 5.9 g/dL (6.4-8.2); eGFR NON BLACK RACES > 60 (>60)
--- NOTE | 2020-07-17 06:30 | RAD ---
HISTORYCOVID, PNEUMONIASTUDYCHEST, 1 VIEWCOMPARISONOne day priorTECHNIQUEAP view of the chestFINDINGSCardiac silhouette is mildly enlarged and unchanged. No significant change in bilateral scattered airspace and interstitial opacities. No pleural effusion or pneumothorax.IMPRESSIONNo significant change in multifocal pneumonia.Electronically signed by: Stan Lynch (Jul 17, 2020 06:29:05)
[2020-07-17] MEDS: LEVAQUIN PREMIX IV 500 MG 500 MG/100 ML BAG IV SCH (08:37)
[2020-07-17] MEDS: LOVENOX INJ 80 MG SYR SC SCH ×2 (08:37→20:42)
[2020-07-17] MEDS: TRICOR TAB 160 MG PO SCH (08:38)
[2020-07-17] MEDS: ROBITUSSIN DM PO PRN (08:38)
[2020-07-17] MEDS: ZINC SULFATE PO SCH ×2 (08:38→20:43)
[2020-07-17] MEDS: DUONEB 0.5 MG/3 MG (3 mL) NEB SCH ×5 (08:45→21:25)
--- NOTE | 2020-07-17 08:52 | PCM.PROG ---
Progress Note - Progress Note for Day of Date of Exam: 07/16/20 - Subjective Subjective: WAS ADMITTED FOR TREATMENT OF PNEUMONIA DUE TO COVID-19. TODAY, HE IS ALERT AND ORIENTED, LYING IN BED ON MORNING ROUNDS. HE CONTINUES WITH COMPLAINTS OF COUGH AND SHORTNESS OF BREATH THIS MORNING. HE DENIES SIGNIFICANT IMPROVEMENT IN SYMPTOMS SINCE ADMISSION. ON EXAMINATION, HEART IS REGULAR IN RATE AND RHYTHM. BILATERAL LUNGS ARE NOTED WITH SCATTERED WHEEZING THROUGHOUT. ABDOMEN IS ROUND, SOFT, AND NON-TENDER WITH NORMAL BOWEL SOUNDS IN ALL QUADRANTS. HIS VITALS THIS MORNING ARE: 98.4-68-23-93%RA-89/50. LABS WERE OBTAINED. ABNORMAL LAB VALUES INCLUDE THE FOLLOWING: RBC 4.41, HCT 40.8, POTASSIUM 3.3, CALCIUM 7.8, FERRITIN 1764, ALK PHOS 39, CRP 75.70, TOTAL PROTEIN 6.0, ALBUMIN 2.3. BLOOD CULTURES ARE PENDING. A CHEST XRAY WAS OBTAINED AND REVEALED: No change hypo inflation. No change bilateral lung infiltrates as described left greater than right. A CHEST CTA WAS OBTAINED YESTERDAY AND REVEALED: 1. Motion limited exam without evidence for central or large segmental PTE. 2. Bilateral airspace disease as above, most compatible with multifocal pneumonia. Atypical pneumonia, to include viral etiologies not excluded. Clinical correlation, continued PA/lateral radiographic rather than CT follow-up and respiratory precautions recommended. 3. Emphysema, mild cardiomegaly and additional chronic findings as above. HE IS CURRENTLY RECEIVING: D5 1/2NS AT 90 ML/HR, LEVAQUIN 500MG IV DAILY, REMDESIVIR 100MG IV DAILY, DUONEBS QID, PULMICORT NEBS BID, LOVENOX 30MG SC BID, TRICOR 160MG PO DAILY, ROBITUSSIN DM 10ML PO Q4H PRN, SOLU-MEDROL 80MG IV Q8H, ZINC SULFATE 220MG PO BID, AND THE POTASSIUM AND MAGNESIUM PROTOCOLS. WE WILL CONTINUE WITH CURRENT PLAN OF CARE TODAY. OTHERWISE, WE WILL FOLLOW UP WITH AM LABS AND CONTINUE TO MONITOR. - Past Medical Family Social History Past Med/Fam/Surg Hx: No changes since H&P Allergies: Allergies No Known Drug Allergies Allergy (Verified 07/14/20 14:29) - Review of Systems ROS: No change since H&P - Vital Signs and I&O's Vital Signs: Temperature 98.7 F Pulse Rate 63 Respiratory Rate 22 Blood Pressure 118/66 O2 Sat by Pulse Oximetry 96 Intake and Output: Intake & Output 07/14/20 07/15/20 07/16/20 07/17/20 11:59 11:59 11:59 11:59 Intake Total 1344 / 1344 3141 / 3141 3454 / 3454 Output Total 1000 / 1000 1350 / 1350 Balance 1344 / 1344 2141 / 2141 2104 / 2104 - Physical Exam Oriented: Normal Eyes: Normal Ear: Normal Nose: Normal Throat: Normal Respiratory: Generalized, Wheezes Cardiovascular: Normal : Normal Auscultation: Bowel Sounds: Normal Palpation: Normal Tenderness: Normal Skin: Normal Musculoskeletal: Normal Psychiatric: Normal Mood Description: Calm Affect: Normal Speech Pattern: Clear, Appropriate - Laboratory and Diagnostics Result Diagrams: 07/17/20 05:07 07/17/20 05:07 Labs: 07/14/20 17:07 Blood Blood Culture - Preliminary 07/14/20 17:03 Blood Blood Culture - Preliminary Laboratory WBC 5.3 X10^3/uL (3.6-10.0) 07/17/20 05:07 RBC 4.41 X10^6/uL (4.7-6.0) L 07/17/20 05:07 Hgb 14.2 g/dL (13.5-18.0) 07/17/20 05:07 Hct 41.2 % (42.0-54.0) L 07/17/20 05:07 MCV 93.5 fL (80.0-100.0) 07/17/20 05:07 MCH 32.2 pg (27.0-34.0) 07/17/20 05:07 MCHC 34.4 g/dL (33.0-35.0) 07/17/20 05:07 RDW 13.0 % (11.6-16.5) 07/17/20 05:07 Plt Count 218 X10^3/uL (150.0-450.0) 07/17/20 05:07 MPV 9.9 fL (7.4-11.0) 07/17/20 05:07 Neut % (Auto) 78.8 % (42.0-75.0) H 07/17/20 05:07 Lymph % (Auto) 10.3 % (21.0-51.0) L 07/17/20 05:07 [place] % (Auto) 10.4 % (0.0-13.0) 07/17/20 05:07 Eos % (Auto) 0.2 % (0.9-2.9) L 07/17/20 05:07 Baso % (Auto) 0.3 % (0.2-1.0) 07/17/20 05:07 Neut # (Auto) 4.1 x10^3/uL (2.2-4.8) 07/17/20 05:07 Lymph # (Auto) 0.5 X10^3/uL (1.3-2.9) L 07/17/20 05:07 [place] # (Auto) 0.5 x10^3/uL (0.3-0.8) 07/17/20 05:07 Eos # (Auto) 0.0 x10^3/uL (0.0-0.2) 07/17/20 05:07 Baso # (Auto) 0.0 X10^3/uL (0.0-0.1) 07/17/20 05:07 Absolute Nucleated RBC 0.1 /100WBC 07/17/20 05:07 PT 13.4 SECONDS (11.8-14.3) 07/14/20 14:53 INR Target Range - 07/14/20 14:53 INR 1.05 (0.8-1.3) 07/14/20 14:53 APTT 28.1 SECONDS (22.9-36.5) 07/14/20 14:53 PTT Comment - 07/14/20 14:53 D-Dimer 0.77 ug/ml (0.0-0.57) H* 07/15/20 04:53 Sample Site Lb 07/15/20 07:00 ABG pH 7.500 (7.35-7.45) H 07/15/20 07:00 ABG pCO2 32.0 mmHg (35.0-45.0) L 07/15/20 07:00 ABG pO2 59.0 mmHg (80.0-100.0) L 07/15/20 07:00 ABG HCO3 25.0 mmol/L (22-26) 07/15/20 07:00 ABG O2 Saturation 93.0 % (90-100) 07/15/20 07:00 ABG Base Excess 2.3 mmol/L (-2.0-2.0) H 07/15/20 07:00 Deejay Test Na 07/15/20 07:00 A-a Gradient 51.0 mmHg 07/15/20 07:00 FiO2 21.0 07/15/20 07:00 Blood Gas Comments Pt [facility] 07/15/20 07:00 Sodium 135 mmol/L (136-145) L 07/17/20 05:07 Corrected Sodium TNP 07/17/20 05:07 Potassium 3.4 mmol/L (3.5-5.1) L 07/17/20 05:07 Chloride 101 mmol/L (98-107) 07/17/20 05:07 Carbon Dioxide 27.9 mmol/L (21-32) 07/17/20 05:07 BUN 12 mg/dL (7-18) 07/17/20 05:07 Creatinine 0.85 mg/dL (0.70-1.30) 07/17/20 05:07 Est GFR (MDRD) Af Amer > 60 (>60) 07/17/20 05:07 Est GFR (MDRD) Non-Af > 60 (>60) 07/17/20 05:07 Glucose 104 mg/dL (65-99) H 07/17/20 05:07 Calcium 7.5 mg/dL (8.5-10.1) L 07/17/20 05:07 Corrected Calcium 8.9 mg/dL (8.5-10.1) 07/17/20 05:07 Magnesium 2.0 mg/dL (1.7-2.9) 07/16/20 04:46 Ferritin 1509 ng/mL (26-388) H 07/17/20 05:07 Total Bilirubin 0.50 mg/dL (0.2-1.0) 07/17/20 05:07 AST 29 Units/L (15-37) 07/17/20 05:07 ALT 23 Units/L (12-78) 07/17/20 05:07 Alkaline Phosphatase 40 Units/L (46-116) L 07/17/20 05:07 Creatine Kinase 225 Units/L (39-308) 07/14/20 14:53 CK-MB (CK-2) < 1.0 ng/mL (0-4.0) 07/14/20 14:53 CK/CKMB % Calc 0.4 % (<4) 07/14/20 14:53 Troponin I < 0.02 ng/mL (0-1.5) 07/15/20 04:53 C-Reactive Protein 63.10 mg/L (0-3.0) H 07/17/20 05:07 B-Natriuretic Peptide 64.8 pg/mL (0-79) 07/15/20 04:53 Total Protein 5.9 g/dL (6.4-8.2) L 07/17/20 05:07 Albumin 2.2 g/dL (3.4-5.0) L 07/17/20 05:07 Globulin 3.7 g/dL (2.5-4.5) 07/17/20 05:07 Albumin/Globulin Ratio 0.6 Ratio (1.1-2.1) L 07/17/20 05:07 SARS-CoV-2 (PCR) Positive (NEGATIVE) A 07/14/20 16:52 - Plan (1) Pneumonia due to COVID-19 virus Status: Acute Plan: D51/2NS AT 90 ML/HR, LEVAQUIN 500MG IV DAILY, REMDESIVIR 100MG IV DAILY, DUONEBS QID, PULMICORT NEBS BID, LOVENOX 30MG SC BID, TRICOR 160MG PO DAILY, ROBITUSSIN DM 10ML PO Q4H PRN, SOLU-MEDROL 80MG IV Q8H, ZINC SULFATE 220MG PO BID, AND THE POTASSIUM AND MAGNESIUM PROTOCOLS. (2) Dyspnea Status: Acute Qualifiers: Dyspnea type: dyspnea on exertion Qualified Code(s): R06.00 - Dyspnea, unspecified
[2020-07-17] MEDS: BENTYL CAP 10 MG PO SCH ×4 (10:21→20:40)
[2020-07-17] MEDS: LEVSIN/MAALOX/LIDOC VISC PO SCH ×4 (10:21→20:42)
[2020-07-17] MEDS: PROTONIX INJ 40 MG VIAL IVP SCH ×2 (10:22→20:43)
[2020-07-17] MEDS: PEPCID 20 MG IV PREMIX* 20 MG/50 ML BAG IV SCH ×2 (10:22→20:43)
--- NOTE | 2020-07-17 11:15 | PCM.PROG ---
Progress Note - Progress Note for Day of Date of Exam: 07/17/20 - Subjective Subjective: WAS ADMITTED FOR TREATMENT OF PNEUMONIA DUE TO COVID-19. TODAY, HE IS ALERT AND ORIENTED, LYING IN BED ON MORNING ROUNDS. HE CONTINUES WITH COMPLAINTS OF COUGH AND SHORTNESS OF BREATH THIS MORNING. HE ALSO REPORTS SEVERE HICCUPS. HE REPORTS SLIGHT IMPROVEMENT IN COUGH TODAY. ON EXAMINATION, HEART IS REGULAR IN RATE AND RHYTHM. BILATERAL LUNGS ARE NOTED WITH SCATTERED WHEEZING THROUGHOUT. ABDOMEN IS ROUND, SOFT, AND NON-TENDER WITH NORMAL BOWEL SOUNDS IN ALL QUADRANTS. HIS VITALS THIS MORNING ARE: 98.7-63-22-96%-118/66. LABS WERE OBTAINED. ABNORMAL LAB VALUES INCLUDE THE FOLLOWING: RBC 4.41, HCT 41.2, SODIUM 135, POTASSIUM 3.4, GLUCOSE 104, CALCIUM 7.5, FERRITIN 1509, ALK PH OS 40, CRP 63.10, TOTAL PROTEIN 5.9, ALBUMIN 2.2. BLOOD CULTURES ARE PENDING. A CHEST XRAY WAS OBTAINED AND REVEALED: No significant change in multifocal pneumonia. HE IS CURRENTLY RECEIVING: D5 1/2NS AT 90 ML/HR, LEVAQUIN 500MG IV DAILY, REMDESIVIR 100MG IV DAILY, DUONEBS QID, PULMICORT NEBS BID, LOVENOX 30MG SC BID, TRICOR 160MG PO DAILY, ROBITUSSIN DM 10ML PO Q4H PRN, SOLU-MEDROL 80MG IV Q8H, ZINC SULFATE 220MG PO BID, AND THE POTASSIUM AND MAGNESIUM PROTOCOLS. WE WILL ADD PEPCID 20MG IV BID, PROTONIX 40MG IV BID, GI COCKTAIL 15 ML PO QID, AND BENTYL 20MG PO QID. WE WILL DECREASE HIS SOLU-MEDROL TO 40MG IV Q8H. OTHERWISE, WE WILL CONTINUE WITH CURRENT PLAN OF CARE TODAY. WE WILL FOLLOW UP WITH AM LABS AND CONTINUE TO MONITOR. - Past Medical Family Social History Past Med/Fam/Surg Hx: No changes since H&P Allergies: Allergies No Known Drug Allergies Allergy (Verified 07/14/20 14:29) - Review of Systems ROS: No change since H&P - Vital Signs and I&O's Vital Signs: Temperature 98.7 F Pulse Rate 71 Respiratory Rate 22 Blood Pressure 137/69 O2 Sat by Pulse Oximetry 94 Intake and Output: Intake & Output 11/21/07/15/20 07/16/20 07/17/20 11:59 11:59 11:59 11:59 Intake Total 1344 / 1344 3141 / 3141 3454 / 3454 Output Total 1000 / 1000 1350 / 1350 Balance 1344 / 1344 2141 / 2141 2104 / 2104 - Physical Exam Oriented: Normal Eyes: Normal Ear: Normal Nose: Normal Throat: Normal Respiratory: Generalized, Wheezes Cardiovascular: Normal : Normal Auscultation: Bowel Sounds: Normal Tenderness: Normal Skin: Normal Musculoskeletal: Normal Psychiatric: Normal Mood Description: Calm Affect: Normal Speech Pattern: Clear, Appropriate - Laboratory and Diagnostics Result Diagrams: 07/17/20 05:07 07/17/20 05:07 Labs: 07/14/20 17:07 Blood Blood Culture - Preliminary 07/14/20 17:03 Blood Blood Culture - Preliminary Laboratory WBC 5.3 X10^3/uL (3.6-10.0) 07/17/20 05:07 RBC 4.41 X10^6/uL (4.7-6.0) L 07/17/20 05:07 Hgb 14.2 g/dL (13.5-18.0) 07/17/20 05:07 Hct 41.2 % (42.0-54.0) L 07/17/20 05:07 MCV 93.5 fL (80.0-100.0) 07/17/20 05:07 MCH 32.2 pg (27.0-34.0) 07/17/20 05:07 MCHC 34.4 g/dL (33.0-35.0) 07/17/20 05:07 RDW 13.0 % (11.6-16.5) 07/17/20 05:07 Plt Count 218 X10^3/uL (150.0-450.0) 07/17/20 05:07 MPV 9.9 fL (7.4-11.0) 07/17/20 05:07 Neut % (Auto) 78.8 % (42.0-75.0) H 07/17/20 05:07 Lymph % (Auto) 10.3 % (21.0-51.0) L 07/17/20 05:07 [place] % (Auto) 10.4 % (0.0-13.0) 07/17/20 05:07 Eos % (Auto) 0.2 % (0.9-2.9) L 07/17/20 05:07 Baso % (Auto) 0.3 % (0.2-1.0) 07/17/20 05:07 Neut # (Auto) 4.1 x10^3/uL (2.2-4.8) 07/17/20 05:07 Lymph # (Auto) 0.5 X10^3/uL (1.3-2.9) L 07/17/20 05:07 [place] # (Auto) 0.5 x10^3/uL (0.3-0.8) 07/17/20 05:07 Eos # (Auto) 0.0 x10^3/uL (0.0-0.2) 07/17/20 05:07 Baso # (Auto) 0.0 X10^3/uL (0.0-0.1) 07/17/20 05:07 Absolute Nucleated RBC 0.1 /100WBC 07/17/20 05:07 PT 13.4 SECONDS (11.8-14.3) 07/14/20 14:53 INR Target Range - 07/14/20 14:53 INR 1.05 (0.8-1.3) 07/14/20 14:53 APTT 28.1 SECONDS (22.9-36.5) 07/14/20 14:53 PTT Comment - 07/14/20 14:53 D-Dimer 0.77 ug/ml (0.0-0.57) H* 07/15/20 04:53 Sample Site Lb 07/15/20 07:00 ABG pH 7.500 (7.35-7.45) H 07/15/20 07:00 ABG pCO2 32.0 mmHg (35.0-45.0) L 07/15/20 07:00 ABG pO2 59.0 mmHg (80.0-100.0) L 07/15/20 07:00 ABG HCO3 25.0 mmol/L (22-26) 07/15/20 07:00 ABG O2 Saturation 93.0 % (90-100) 07/15/20 07:00 ABG Base Excess 2.3 mmol/L (-2.0-2.0) H 07/15/20 07:00 Deejay Test Na 07/15/20 07:00 A-a Gradient 51.0 mmHg 07/15/20 07:00 FiO2 21.0 07/15/20 07:00 Blood Gas Comments Pt [facility] 07/15/20 07:00 Sodium 135 mmol/L (136-145) L 07/17/20 05:07 Corrected Sodium TNP 07/17/20 05:07 Potassium 3.4 mmol/L (3.5-5.1) L 07/17/20 05:07 Chloride 101 mmol/L (98-107) 07/17/20 05:07 Carbon Dioxide 27.9 mmol/L (21-32) 07/17/20 05:07 BUN 12 mg/dL (7-18) 07/17/20 05:07 Creatinine 0.85 mg/dL (0.70-1.30) 07/17/20 05:07 Est GFR (MDRD) Af Amer > 60 (>60) 07/17/20 05:07 Est GFR (MDRD) Non-Af > 60 (>60) 07/17/20 05:07 Glucose 104 mg/dL (65-99) H 07/17/20 05:07 Calcium 7.5 mg/dL (8.5-10.1) L 07/17/20 05:07 Corrected Calcium 8.9 mg/dL (8.5-10.1) 07/17/20 05:07 Magnesium 2.0 mg/dL (1.7-2.9) 07/16/20 04:46 Ferritin 1509 ng/mL (26-388) H 07/17/20 05:07 Total Bilirubin 0.50 mg/dL (0.2-1.0) 07/17/20 05:07 AST 29 Units/L (15-37) 07/17/20 05:07 ALT 23 Units/L (12-78) 07/17/20 05:07 Alkaline Phosphatase 40 Units/L (46-116) L 07/17/20 05:07 Creatine Kinase 225 Units/L (39-308) 07/14/20 14:53 CK-MB (CK-2) < 1.0 ng/mL (0-4.0) 07/14/20 14:53 CK/CKMB % Calc 0.4 % (<4) 07/14/20 14:53 Troponin I < 0.02 ng/mL (0-1.5) 07/15/20 04:53 C-Reactive Protein 63.10 mg/L (0-3.0) H 07/17/20 05:07 B-Natriuretic Peptide 64.8 pg/mL (0-79) 07/15/20 04:53 Total Protein 5.9 g/dL (6.4-8.2) L 07/17/20 05:07 Albumin 2.2 g/dL (3.4-5.0) L 07/17/20 05:07 Globulin 3.7 g/dL (2.5-4.5) 07/17/20 05:07 Albumin/Globulin Ratio 0.6 Ratio (1.1-2.1) L 07/17/20 05:07 SARS-CoV-2 (PCR) Positive (NEGATIVE) A 07/14/20 16:52 - Plan (1) Pneumonia due to COVID-19 virus Status: Acute Plan: D51/2NS AT 90 ML/HR, LEVAQUIN 500MG IV DAILY, REMDESIVIR 100MG IV DAILY, DUONEBS QID, PULMICORT NEBS BID, LOVENOX 30MG SC BID, TRICOR 160MG PO DAILY, ROBITUSSIN DM 10ML PO Q4H PRN, SOLU-MEDROL 40MG IV Q8H, ZINC SULFATE 220MG PO BID, AND THE POTASSIUM AND MAGNESIUM PROTOCOLS. (2) Dyspnea Status: Acute Qualifiers: Dyspnea type: dyspnea on exertion Qualified Code(s): R06.00 - Dyspnea, unspecified (3) Intractable hiccups Status: Acute Plan: PEPCID 20MG IV BID, PROTONIX 40MG IV BID, GI COCKTAIL 15 ML PO QID, AND BENTYL 20MG PO QID
[2020-07-17] MEDS ORDERED: SOLU-Medrol 40 MG VIAL ONE (11:34)
[2020-07-17] MEDS: TYLENOL 325 MG TAB PO PRN (11:55)
[2020-07-17] MEDS: SOLU-Medrol 40 MG VIAL IVP SCH ×2 (14:04→21:10)
[2020-07-17] MEDS: REMDESIVIR 100 MG in NS 250 ML IV 250 ML IV SCH (17:03)
[2020-07-18] MEDS: D5 1/2 NS 1000 ML 1,000 ML IV SCH ×3 (02:54→17:00)
[2020-07-18] MEDS: TYLENOL 325 MG TAB PO PRN (04:33)
[2020-07-18] MEDS: SOLU-Medrol 40 MG VIAL IVP SCH ×3 (05:12→21:18)
[2020-07-18 05:38] LABS: BASOPHILS % (AUTO) 0.2 % (0.2-1.0); HEMATOCRIT 39.8 % (42.0-54.0); HEMOGLOBIN 13.9 g/dL (13.5-18.0); LYMPHOCYTES # (AUTO) 0.3 X10^3/uL (1.3-2.9); LYMPHOCYTES % (AUTO) 9.3 % (21.0-51.0); MEAN CORPUSCULAR HEMOGLOBIN 32.3 pg (27.0-34.0); MEAN CORPUSCULAR HGB CONC 35.1 g/dL (33.0-35.0); MEAN PLATELET VOLUME 9.6 fL (7.4-11.0); MONOCYTES # (AUTO) 0.4 x10^3/uL (0.3-0.8); MONOCYTES % (AUTO) 11.5 % (0.0-13.0); NEUTROPHILS # (AUTO) 2.7 x10^3/uL (2.2-4.8); PLATELET COUNT 277 X10^3/uL (150.0-450.0); RED BLOOD COUNT 4.32 X10^6/uL (4.7-6.0); RED CELL DISTRIBUTION WIDTH 13.3 % (11.6-16.5); WHITE BLOOD COUNT 3.4 X10^3/uL (3.6-10.0)
[2020-07-18 06:18] LABS: ABG ALLEN TEST POS; ABG BASE EXCESS 4.9 mmol/L (-2.0-2.0); ABG HCO3 27.9 mmol/L (22-26)
--- NOTE | 2020-07-18 06:29 | RAD ---
HISTORYFollow-up COVID-19STUDYChest AP [id number]/2020FINDINGSThe heart is within normal limits in size. The jorden are normal. Bilateral interstitial and some patchy ground-glass infiltrates are again identified but demonstrates some improvement when compared to the prior examination. No pleural effusions are identified. Bony thorax is unremarkable.IMPRESSIONBilateral interstitial and some patchy ground-glass infiltrates again identified but improved when compared with the prior examinationElectronically signed by: DAVIN STOKES (Jul 18, 2020 06:27:45)
[2020-07-18 06:39] LABS: ALANINE AMINOTRANSFERASE 27 Units/L (12-78); ALBUMIN 2.3 g/dL (3.4-5.0); ALKALINE PHOSPHATASE 45 Units/L (46-116); ASPARTATE AMINO TRANSFERASE 30 Units/L (15-37); BLOOD UREA NITROGEN 12 mg/dL (7-18); CALCIUM 7.9 mg/dL (8.5-10.1); CARBON DIOXIDE 26.9 mmol/L (21-32); CHLORIDE 103 mmol/L (98-107); COR CA(FOR HYPOALB) 9.3 mg/dL (8.5-10.1); COR NA(FOR HYPERGLY) 138 mmol/L (136-145); CREATININE 0.84 mg/dL (0.70-1.30); SODIUM 137 mmol/L (136-145); eGFR NON BLACK RACES > 60 (>60)
[2020-07-18] MEDS: LEVAQUIN PREMIX IV 500 MG 500 MG/100 ML BAG IV SCH (08:51)
[2020-07-18] MEDS: BENTYL CAP 10 MG PO SCH ×4 (08:51→21:17)
[2020-07-18] MEDS: LEVSIN/MAALOX/LIDOC VISC PO SCH ×4 (08:51→21:17)
[2020-07-18] MEDS: LOVENOX INJ 80 MG SYR SC SCH ×2 (08:52→21:18)
[2020-07-18] MEDS: PROTONIX INJ 40 MG VIAL IVP SCH ×2 (08:52→21:18)
[2020-07-18] MEDS: PEPCID 20 MG IV PREMIX* 20 MG/50 ML BAG IV SCH ×2 (08:52→21:18)
[2020-07-18] MEDS: TRICOR TAB 160 MG PO SCH (08:53)
[2020-07-18] MEDS: ZINC SULFATE PO SCH ×2 (08:53→21:18)
[2020-07-18] MEDS: DUONEB 0.5 MG/3 MG (3 mL) NEB SCH ×4 (09:35→20:25)
[2020-07-18] MEDS: REMDESIVIR 100 MG in NS 250 ML IV 250 ML IV SCH (18:37)
[2020-07-19 05:36] LABS: BASOPHILS % (AUTO) 0.1 % (0.2-1.0); HEMATOCRIT 38.9 % (42.0-54.0); HEMOGLOBIN 13.4 g/dL (13.5-18.0); LYMPHOCYTES # (AUTO) 0.5 X10^3/uL (1.3-2.9); LYMPHOCYTES % (AUTO) 6.1 % (21.0-51.0); MEAN CORPUSCULAR HEMOGLOBIN 32.3 pg (27.0-34.0); MEAN CORPUSCULAR HGB CONC 34.5 g/dL (33.0-35.0); MEAN CORPUSCULAR VOLUME 93.6 fL (80.0-100.0); MEAN PLATELET VOLUME 9.6 fL (7.4-11.0); MONOCYTES # (AUTO) 0.7 x10^3/uL (0.3-0.8); MONOCYTES % (AUTO) 9.6 % (0.0-13.0); NEUTROPHILS # (AUTO) 6.5 x10^3/uL (2.2-4.8); NEUTROPHILS % (AUTO) 84.2 % (42.0-75.0); PLATELET COUNT 325 X10^3/uL (150.0-450.0); RED BLOOD COUNT 4.16 X10^6/uL (4.7-6.0); RED CELL DISTRIBUTION WIDTH 13.2 % (11.6-16.5); WHITE BLOOD COUNT 7.7 X10^3/uL (3.6-10.0)
[2020-07-19] MEDS: SOLU-Medrol 40 MG VIAL IVP SCH (05:36)
[2020-07-19 05:47] LABS: ABG BASE EXCESS 6.4 mmol/L (-2.0-2.0)
[2020-07-19 05:48] LABS: ABG ALLEN TEST POS; ABG HCO3 30.5 mmol/L (22-26)
[2020-07-19 05:57] LABS: ALANINE AMINOTRANSFERASE 32 Units/L (12-78); ALBUMIN 2.3 g/dL (3.4-5.0); ALKALINE PHOSPHATASE 46 Units/L (46-116); ASPARTATE AMINO TRANSFERASE 32 Units/L (15-37); BLOOD UREA NITROGEN 17 mg/dL (7-18); CALCIUM 7.9 mg/dL (8.5-10.1); CARBON DIOXIDE 28.8 mmol/L (21-32); CHLORIDE 104 mmol/L (98-107); COR CA(FOR HYPOALB) 9.3 mg/dL (8.5-10.1); COR NA(FOR HYPERGLY) 141 mmol/L (136-145); CREATININE 0.91 mg/dL (0.70-1.30); SODIUM 140 mmol/L (136-145); TOTAL PROTEIN 5.8 g/dL (6.4-8.2); eGFR NON BLACK RACES > 60 (>60)
[2020-07-19] MEDS: D5 1/2 NS 1000 ML 1,000 ML IV SCH (06:52)
--- NOTE | 2020-07-19 06:55 | RAD ---
HISTORYCOVID, SOBSTUDYCHEST, 1 [id number]/25/2020FINDINGSThe trachea is midline. The cardiac silhouette is accentuated by portable technique. Scattered interstitial lung changes throughout the right and left chest are observed. The bony thorax is unremarkable.IMPRESSIONPersistent but stable interstitial lung changes throughout the right and left davian thorax.Electronically signed by: TITI RODRIGUES (Jul 19, 2020 06:53:40)
[2020-07-19] MEDS: LEVAQUIN PREMIX IV 500 MG 500 MG/100 ML BAG IV SCH (08:31)
[2020-07-19] MEDS: TRICOR TAB 160 MG PO SCH (08:32)
[2020-07-19] MEDS: PROTONIX INJ 40 MG VIAL IVP SCH (08:32)
[2020-07-19] MEDS: K-DUR TAB 20 MEQ PO PRN (08:32)
[2020-07-19] MEDS: BENTYL CAP 10 MG PO SCH (08:32)
[2020-07-19] MEDS: ZINC SULFATE PO SCH (08:32)
[2020-07-19] MEDS: LEVSIN/MAALOX/LIDOC VISC PO SCH (08:33)
[2020-07-19] MEDS: LOVENOX INJ 80 MG SYR SC SCH (08:33)
[2020-07-19] MEDS: DUONEB 0.5 MG/3 MG (3 mL) NEB SCH (09:35)
[2020-07-19] MEDS: PEPCID 20 MG IV PREMIX* 20 MG/50 ML BAG IV SCH (09:43)
[2020-07-19 11:07] VITALS: BP 111/58
--- NOTE | 2020-07-23 22:22 | PCM.PROG ---
Progress Note - Progress Note for Day of Date of Exam: 07/18/20 - Subjective Subjective: IS BEING TREATED FOR PNEUMONIA DUE TO COVID-19. TODAY, HE IS ALERT AND ORIENTED, LYING IN BED ON MORNING ROUNDS. HE CONTINUES WITH COMPLAINTS OF COUGH AND SHORTNESS OF BREATH THIS MORNING. HE DOES ADMIT TO SLIGHT IMPROVEMENT IN SYMPTOMS, INCLUDING IMPROVEMENT IN HICCUPS TODAY. ON E XAMINATION, HEART IS REGULAR IN RATE AND RHYTHM. BILATERAL LUNGS ARE NOTED WITH DIMINISHED LUNG SOUNDS THROUGHOUT. ABDOMEN IS ROUND, SOFT, AND NON-TENDER WITH NORMAL BOWEL SOUNDS IN ALL QUADRANTS. HIS VITALS THIS MORNING ARE: 98.4-70-20-96%-98/57. LABS WERE OBTAINED. ABNORMAL LAB VALUES INCLUDE THE FOLLOWING: WBC 3.4, RBC 4.32, HCT 39.8, GLUCOSE 147, CALCIUM 7.9, FERRITIN 341, ALK PHOS 45, CRP 63.40, TOTAL PROTEIN 6.0, ALBUMIN 2.3. BLOOD CULTURES ARE PENDING. A CHEST XRAY WAS OBTAINED AND REVEALED: Bilateral interstitial and some patchy ground-glass infiltrates again identified but improved when compared with the prior examination. HE IS CURRENTLY RECEIVING: D5 1/2NS AT 90 ML/HR, LEVAQUIN 500MG IV DAILY, REMDESIVIR 100MG IV DAILY, DUONEBS QID, PULMICORT NEBS BID, LOVENOX 30MG SC BID, TRICOR 160MG PO DAILY, ROBITUSSIN DM 10ML PO Q4H PRN, SOLU- MEDROL 40MG IV Q8H, ZINC SULFATE 220MG PO BID, PEPCID 20MG IV BID, PROTONIX 40MG IV BID, GI COCKTAIL 15 ML PO QID, AND BENTYL 20MG PO QID, AND THE POTASSIUM AND MAGNESIUM PROTOCOLS. WE WILL CONTINUE WITH CURRENT PLAN OF CARE TODAY. OTHERWISE, WE WILL FOLLOW UP WITH AM LABS AND CONTINUE TO MONITOR. - Past Medical Family Social History Past Med/Fam/Surg Hx: No changes since H&P Allergies: Allergies No Known Drug Allergies Allergy (Verified 07/14/20 14:29) - Review of Systems ROS: No change since H&P - Vital Signs and I&O's Vital Signs: Temperature 98.0 F Pulse Rate 89 Respiratory Rate 20 Blood Pressure 111/58 O2 Sat by Pulse Oximetry 94 - Physical Exam Oriented: Normal Eyes: Normal Ear: Normal Nose: Normal Throat: Normal Respiratory: Generalized, Diminished Cardiovascular: Normal : Normal Auscultation: Bowel Sounds: Normal Tenderness: Normal Skin: Normal Musculoskeletal: Normal Psychiatric: Normal Mood Description: Calm Affect: Normal Speech Pattern: Clear, Appropriate - Laboratory and Diagnostics Result Diagrams: 07/19/20 04:45 07/19/20 04:45 Labs: 07/14/20 17:07 Blood Blood Culture - Final 07/14/20 17:03 Blood Blood Culture - Final Laboratory WBC 7.7 X10^3/uL (3.6-10.0) 07/19/20 04:45 RBC 4.16 X10^6/uL (4.7-6.0) L 07/19/20 04:45 Hgb 13.4 g/dL (13.5-18.0) L 07/19/20 04:45 Hct 38.9 % (42.0-54.0) L 07/19/20 04:45 MCV 93.6 fL (80.0-100.0) 07/19/20 04:45 MCH 32.3 pg (27.0-34.0) 07/19/20 04:45 MCHC 34.5 g/dL (33.0-35.0) 07/19/20 04:45 RDW 13.2 % (11.6-16.5) 07/19/20 04:45 Plt Count 325 X10^3/uL (150.0-450.0) 07/19/20 04:45 MPV 9.6 fL (7.4-11.0) 07/19/20 04:45 Neut % (Auto) 84.2 % (42.0-75.0) H 07/19/20 04:45 Lymph % (Auto) 6.1 % (21.0-51.0) L 07/19/20 04:45 [place] % (Auto) 9.6 % (0.0-13.0) 07/19/20 04:45 Eos % (Auto) 0.0 % (0.9-2.9) L 07/19/20 04:45 Baso % (Auto) 0.1 % (0.2-1.0) L 07/19/20 04:45 Neut # (Auto) 6.5 x10^3/uL (2.2-4.8) H 07/19/20 04:45 Lymph # (Auto) 0.5 X10^3/uL (1.3-2.9) L 07/19/20 04:45 [place] # (Auto) 0.7 x10^3/uL (0.3-0.8) 07/19/20 04:45 Eos # (Auto) 0.0 x10^3/uL (0.0-0.2) 07/19/20 04:45 Baso # (Auto) 0.0 X10^3/uL (0.0-0.1) 07/19/20 04:45 Absolute Nucleated RBC 0.0 /100WBC 07/19/20 04:45 PT 13.4 SECONDS (11.8-14.3) 07/14/20 14:53 INR Target Range - 07/14/20 14:53 INR 1.05 (0.8-1.3) 07/14/20 14:53 APTT 28.1 SECONDS (22.9-36.5) 07/14/20 14:53 PTT Comment - 07/14/20 14:53 D-Dimer 0.77 ug/ml (0.0-0.57) H* 07/15/20 04:53 Sample Site Rrad 07/19/20 05:44 ABG pH 7.480 (7.35-7.45) H 07/19/20 05:44 ABG pCO2 41.0 mmHg (35.0-45.0) 07/19/20 05:44 ABG pO2 76.0 mmHg (80.0-100.0) L 07/19/20 05:44 ABG HCO3 30.5 mmol/L (22-26) H* 07/19/20 05:44 ABG O2 Saturation 96.0 % (90-100) 07/19/20 05:44 ABG Base Excess 6.4 mmol/L (-2.0-2.0) H 07/19/20 05:44 Deejay Test Pos 07/19/20 05:44 A-a Gradient 22.0 mmHg 07/19/20 05:44 FiO2 21.0 07/19/20 05:44 Blood Gas Comments Cherise abg well-mtf 07/19/20 05:44 Sodium 140 mmol/L (136-145) 07/19/20 04:45 Corrected Sodium 141 mmol/L (136-145) 07/19/20 04:45 Potassium 3.7 mmol/L (3.5-5.1) 07/19/20 04:45 Chloride 104 mmol/L (98-107) 07/19/20 04:45 Carbon Dioxide 28.8 mmol/L (21-32) 07/19/20 04:45 BUN 17 mg/dL (7-18) 07/19/20 04:45 Creatinine 0.91 mg/dL (0.70-1.30) 07/19/20 04:45 Est GFR (MDRD) Af Amer > 60 (>60) 07/19/20 04:45 Est GFR (MDRD) Non-Af > 60 (>60) 07/19/20 04:45 Glucose 145 mg/dL (65-99) H 07/19/20 04:45 Calcium 7.9 mg/dL (8.5-10.1) L 07/19/20 04:45 Corrected Calcium 9.3 mg/dL (8.5-10.1) 07/19/20 04:45 Magnesium 2.0 mg/dL (1.7-2.9) 07/16/20 04:46 Ferritin 973 ng/mL (26-388) H 07/19/20 04:45 Total Bilirubin 0.30 mg/dL (0.2-1.0) 07/19/20 04:45 AST 32 Units/L (15-37) 07/19/20 04:45 ALT 32 Units/L (12-78) 07/19/20 04:45 Alkaline Phosphatase 46 Units/L (46-116) 07/19/20 04:45 Creatine Kinase 225 Units/L (39-308) 07/14/20 14:53 CK-MB (CK-2) < 1.0 ng/mL (0-4.0) 07/14/20 14:53 CK/CKMB % Calc 0.4 % (<4) 07/14/20 14:53 Troponin I < 0.02 ng/mL (0-1.5) 07/15/20 04:53 C-Reactive Protein 26.30 mg/L (0-3.0) H 07/19/20 04:45 B-Natriuretic Peptide 64.8 pg/mL (0-79) 07/15/20 04:53 Total Protein 5.8 g/dL (6.4-8.2) L 07/19/20 04:45 Albumin 2.3 g/dL (3.4-5.0) L 07/19/20 04:45 Globulin 3.5 g/dL (2.5-4.5) 07/19/20 04:45 Albumin/Globulin Ratio 0.7 Ratio (1.1-2.1) L 07/19/20 04:45 SARS-CoV-2 (PCR) Positive (NEGATIVE) A 07/14/20 16:52 - Plan (1) Pneumonia due to COVID-19 virus Status: Acute Plan: D51/2NS AT 90 ML/HR, LEVAQUIN 500MG IV DAILY, REMDESIVIR 100MG IV DAILY, DUONEBS QID, PULMICORT NEBS BID, LOVENOX 30MG SC BID, TRICOR 160MG PO DAILY, ROBITUSSIN DM 10ML PO Q4H PRN, SOLU-MEDROL 40MG IV Q8H, ZINC SULFATE 220MG PO BID, AND THE POTASSIUM AND MAGNESIUM PROTOCOLS. (2) Dyspnea Status: Acute Qualifiers: Dyspnea type: dyspnea on exertion Qualified Code(s): R06.00 - Dyspnea, unspecified (3) Intractable hiccups Status: Acute Plan: PEPCID 20MG IV BID, PROTONIX 40MG IV BID, GI COCKTAIL 15 ML PO QID, AND BENTYL 20MG PO QID
== END 2020-07-19 11:45 | disposition home or self-care (01) | DRG 177 ==
LOC: ER 13:10 → ICU 17:13
PROVIDERS: ADMIT Internal Medicine; ATTEND Internal Medicine
DX: R06.00 Dyspnea, unspecified; R06.02 Shortness of breath; R61 Generalized hyperhidrosis; I95.89 Other hypotension; R79.82 Elevated C-reactive protein (CRP); U07.1 COVID-19; E78.2 Mixed hyperlipidemia; R79.89 Other specified abnormal findings of blood chemistry; J12.89 Other viral pneumonia; R06.6 Hiccough